=== PATIENT | female | born 1965 | race Two or more races ===

== ENCOUNTER 2018-03-10 14:54 | Emergency (ER) | payer MEDICAID ==
[~2018-03-10] VITALS: Ht 157.5 cm; Wt 64.4 kg
[~2018-03-10 14:54] MED LIST: NKM; TRAMADOL HCL50 MG ORAL
[2018-03-10 15:06] VITALS: BP 155/81
--- NOTE | 2018-03-10 15:29 | Emergency Room Report ---
History of Present Illness General Chief Complaint: Skin Rash/Abscess Source: Patient Present Illness HPI 52 YO female presents to the ED c/o rash under the left armpit and right breast x 1 month. pt. reports being rx'd antifungal cream by her pcp however it burned when she attempted to apply it so she has not used it. pt. reports initially having moderate itching, she describes a hyperpigmented rash. pt. denies Pmhx such as DM. pt. reports had similar symptoms however it resolved after application of cream. pt. requests oral medication because topical is painful for her. 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 Pt. denies fevers, chills or swollen tender lymph nodes. Denies lesions/rashes elsewhere on the body. Denies new medications or body washes or creams. Denies swelling of the lips, tongue , throat or airway. Denies wheezing, or shortness of breath. Denies recent travel , recent illness. Denies blisters, oral lesions, or sloughing of the skin Allergies: Coded Allergies: No Known Allergies (Unverified , 03/10/18) Patient History Past Medical History: see triage record Past Surgical History: none Pertinent Family History: none Last Menstrual Period: December, Now: No Reviewed Nursing Documentation: PMH: Agreed; PSxH: Agreed Nursing Documentation-PMH Past Medical History: No Stated History Review of Systems All Other Systems: negative except mentioned in HPI Physical Exam Vital Signs Date Time Temp Pulse Resp B/P (MAP) Pulse Ox O2 Delivery O2 Flow Rate FiO2 03/10/18 14:58 98.8 110 16 155/81 97 Room Air 98.8 Sp02 EP Interpretation: reviewed, normal General Appearance: no apparent distress, alert, GCS 15, non-toxic Head: normocephalic, atraumatic ENT: hearing grossly normal, normal pharynx, no angioedema, normal voice Neck: full range of motion Respiratory: lungs clear, normal breath sounds, no rhonchi, no respiratory distress, no wheezing, speaking full sentences Cardiovascular #1: regular rate, rhythm Musculoskeletal: back normal, gait/station normal, normal range of motion, non- tender Neurologic: alert, oriented x3, responsive, motor strength/tone normal, sensory intact, speech normal, grossly normal Psychiatric: judgement/insight normal Skin: normal color, warm/dry, well hydrated, rash - hyperpigmented black plaques on the left axilla and under the right breast, no erythema, d/c , fluctuance, blisters or vessicles noted, well circumscribed. Lymphatic: no adenopathy Medical Decision Making PA Attestation Dr. Friend is my supervising Physician whom patient management has been discussed with. Diagnostic Impression: Primary Impression: Tinea corporis Additional Impression: Yeast infection ER Course 52 YO female presents to the ED c/o rash under the left armpit and right breast x 1 month. pt. reports being rx'd antifungal cream by her pcp however it burned when she attempted to apply it so she has not used it. pt. reports initially having moderate itching, she describes a hyperpigmented rash. pt. denies Pmhx such as DM. pt. reports had similar symptoms however it resolved after application of cream. pt. requests oral medication because topical is painful for her. 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 Pt. denies fevers, chills or swollen tender lymph nodes. Denies lesions/rashes elsewhere on the body. Denies new medications or body washes or creams. Denies swelling of the lips, tongue , throat or airway. Denies wheezing, or shortness of breath. Denies recent travel , recent illness. Denies blisters, oral lesions, or sloughing of the skin Ddx considered but are not limited to cellulitis, scabies, shingles, varicella, dermatitis, urticaria, eczema, tinea, viral exanthem, SJS Vital signs: are WNL, pt. is afebrile H&PE are most consistent with Tinea Corporis. hyperpigmented black plaques on the left axilla and under the right breast, no erythema, d/c , fluctuance, blisters or versicles noted, well circumscribed. ORDERS: none required at this time, the diagnosis is clinical ED INTERVENTIONS: -D/w pt. the importance of medication compliance, also d/w pt. that oral antifungals can be damaging to the liver, if she requires stronger oral antifungal medications it is recommended to be rx'd by her pcp or a child development teacher, someone who can closely monitor liver functions. d/w pt. will provide rx for a soak that should help relieve the burning sensation she is experiencing, however I strongly recommend dermatology evaluation. DISCHARGE: At this time pt. is stable for d/c to home. Will provide printed patient care instructions, and any necessary prescriptions. Care plan and follow up instructions have been discussed with the patient prior to discharge. Last Vital Signs Date Time Temp Pulse Resp B/P (MAP) Pulse Ox O2 Delivery O2 Flow Rate FiO2 03/10/18 15:06 98.8 94 16 155/81 97 Room Air 98.8 Disposition: HOME, SELF-CARE Condition: Stable Scripts Triamcinolone Acet (Triamcinolone Acetonide) 15 Gm Cream..g. 1 APPLIC TOPIC BID, #15 GM Prov: Leona Mccray 03/10/18 Calcium Acetate/Aluminum Sulf (DOMEBORO PACKET) 1 Each Powd.pack 1 EACH TP TID, #30 PACK Prov: Leona Mccray 03/10/18 Terbinafine Hcl (TERBINAFINE) 15 Gm Cream..g. 15 GM TP TID, #15 GM Prov: Leona Mccray 03/10/18 Patient Instructions: Rash Additional Instructions: Take medications as directed. Follow up with a Primary Care Provider in 3-5 days, is symptoms persist may need DERMATOLOGY Referral --Please review list of primary care clinics, if you do not already have a primary care provider Return sooner to ED if new symptoms occur, or current symptoms become worse. - Please note that this Emergency Department Report was dictated using [employer] technology software, occasionally this can lead to erroneous entry secondary to interpretation by the dictation equipment. Leona Mccray Mar 10, 2018 15:29
[2018-03-10] MEDS ORDERED: Fluconazole 100mg tab ORAL ONE (15:30)
[2018-03-10] MEDS ORDERED: [UNRECOGNIZED DRUG - OTHER] TP (15:33)
[2018-03-10] MEDS ORDERED: TERBINAFINE15 GM TP (15:33)
[2018-03-10] MEDS ORDERED: KENALOG 0.025%15 GM TOPIC (15:33)
[2018-03-10 15:54] VITALS: BP 134/71
== END 2018-03-10 15:58 | disposition home or self-care (01) ==
LOC: EMR 15:50
DX: B35.4 Tinea corporis (principal); B37.9 Candidiasis, unspecified
CPT/HCPCS: 99282